=== PATIENT | male | born 1960 | race Caucasian/White ===

== ENCOUNTER 2016-10-26 20:05 | Emergency (ER) | payer BC ==
[~2016-10-26] VITALS: Ht 185.4 cm; Wt 142.9 kg
[~2016-10-26 20:05] MED LIST: ASPIRIN81 M1 PO; AUGMENTIN XR 101 TER PO; DIOVAN160 M1 PO; GLYBURIDE5 MG PO; LISINOPRIL20 MG PO; METFORMIN1000 MG PO; MULTIPLE VITAMI1 CAP PO; PANTOPRAZOLE SO20 MG PO; SIMVASTATIN40 MG PO; TRICOR; VICODIN 500 MG-1 TAB PO; VICTOZA6 MG/ML SC
[2016-10-26 20:50] LABS: BASO % 0.4 % (0.0-1.0); EOS % 0.4 % (1.0-4.0); HEMATOCRIT 48.1 % (42.0-52.0); HEMOGLOBIN 16.1 g/dl (14.0-18.0); LYMPH # 1.6 10*3/uL (1.3-4.4); LYMPH % 34.4 % (27.0-41.0); MEAN CELL VOLUME 83.7 fl (80.0-94.0); MEAN CORPUSCULAR HGB CONC 33.5 g/dl (33.0-37.0); MEAN PLATELET VOLUME 10.3 fl (9.6-12.3); MONO # 0.6 10*3/uL (0.1-1.0); MONO % 13.3 % (3.0-9.0); NEUT # 2.3 10*3/uL (2.3-7.9); NEUT % 51.3 % (47.0-73.0); PLATELET COUNT AUTOMATED 131 10*3/uL (130-400); RED BLOOD COUNT 5.75 10*6/uL (4.50-5.90); RED CELL DISTRI WIDTH 14.9 % (0-14.5); WHITE BLOOD COUNT 4.5 10*3/uL (4.8-10.8)
[2016-10-26 21:03] LABS: PROTHROMBIN TIME 10.7 SECONDS (9.0-12.4)
[2016-10-26 21:06] LABS: ALBUMIN 3.6 gm/dl (3.1-4.5); ALKALINE PHOSPHATASE 80 U/L (45-117); BILIRUBIN, TOTAL 0.5 mg/dl (0.2-1.0); BUN 11 mg/dl (7-24); CARBON DIOXIDE 24 mmol/L (21-32); CHLORIDE 103 mmol/L (98-107); EST GLOM FILT AFRICAN AMERICAN > 60 ml/min; GLUCOSE 157 mg/dL (65-99); MAGNESIUM 1.5 mg/dL (1.5-2.1); POTASSIUM 4.3 mmol/L (3.5-5.1); SGOT/AST 59 IU/L (3-35); SGPT/ALT 76 U/L (12-78); SODIUM 139 mmol/L (136-145); TOTAL PROTEIN 7.3 gm/dL (6.4-8.2)
[2016-10-26 21:08] LABS: TROPONIN I < 0.015 ng/ml (<0.045)
[2016-10-26 22:39] LABS: ABG BASE EXCESS -1.2 mmol/L (-2.0-2.0); ABG CO2 CONTENT 23.3 mmol/L (23-27); ABG HCO3 22.2 mmol/l (22-26); ABG TEMPERATURE 98.1 F (98.0-99.0); ARTERIAL BLOOD GAS PH 7.42 (7.35-7.45)
[2016-10-26] MEDS ORDERED: LEVOFLOXACIN500 MG PO (22:56)
[2016-10-26] MEDS ORDERED: PREDNISONE10 MG PO (22:56)
== END 2016-10-26 22:56 | disposition home or self-care (01) ==
LOC: ED 20:05
PROVIDERS: Emergency Medicine Emergency Medical Services
DX: J20.9 Acute bronchitis, unspecified (principal); I10 Essential (primary) hypertension; J44.9 Chronic obstructive pulmonary disease, unspecified; F17.200 Nicotine dependence, unspecified, uncomplicated; Z79.82 Long term (current) use of aspirin; Z79.899 Other long term (current) drug therapy

== ENCOUNTER 2025-06-08 05:57 | Inpatient (IN) | payer BC ==
[~2025-06-08] VITALS: Ht 182.8 cm; Wt 104.8 kg
[~2025-06-08 05:57] MED LIST changes: +LEVOFLOXACIN500 MG PO; +PREDNISONE10 MG PO
[2025-06-08] MEDS ORDERED: Albuterol Sulf/Ipratropium 3 ML VIAL NEB ONE (06:00)
[2025-06-08 06:03] VITALS: BP 146/70
[2025-06-08 06:32] LABS: MEAN CELL VOLUME 97.7 fl (80.0-94.0); MEAN CORPUSCULAR HGB 30.2 pg (27.0-31.0); MEAN PLATELET VOLUME 10.7 fl (9.6-12.3); NUCLEATED RED BLOOD CELL 0.0 % (0.0-0.0); NUCLEATED RED BLOOD CELL 0.0 10*3/uL (0.0-0.0); PLATELET COUNT AUTOMATED 55 10*3/uL (130-400); RED CELL DISTRI WIDTH 17.7 % (0-14.5)
[2025-06-08] MEDS ORDERED: PLAVIX75 M1 PO (06:37)
[2025-06-08] MEDS ORDERED: MAGNESIUM OXID400 MG PO (06:37)
[2025-06-08] MEDS ORDERED: TOPROL XL25 MG PO (06:37)
[2025-06-08] MEDS ORDERED: LYRICA75 M1 PO (06:38)
[2025-06-08] MEDS ORDERED: LEXAPRO10 MG PO (06:40)
[2025-06-08] MEDS ORDERED: SENNA8.8 MG/5 M PO (06:42)
[2025-06-08] MEDS ORDERED: NIFEDIPINE30 MG PO (06:43)
[2025-06-08] MEDS ORDERED: LIPITOR40 MG PO (06:43)
[2025-06-08] MEDS ORDERED: ATIVAN1 MG PO (06:44)
[2025-06-08] MEDS ORDERED: IRON325 M1 PO (06:44)
[2025-06-08] MEDS ORDERED: LANTUS SOL100 UNIT/1 SC (06:45)
[2025-06-08] MEDS ORDERED: HUMALOG KW200 UNIT/1 SQ (06:45)
[2025-06-08] MEDS ORDERED: Ondansetron4 MG PO (06:46)
[2025-06-08] MEDS ORDERED: OXYCODONE H5 MG/5 ML PO (06:47)
[2025-06-08] MEDS ORDERED: CHLORHEXIDINE FL1 ML MC (06:48)
[2025-06-08 06:53] LABS: BUN 19 mg/dl (9-23)
[2025-06-08 06:59] LABS: MANUAL DIFF REFLEX YES
[2025-06-08 07:09] LABS: PLATELET SUFFICIENCY LOW (NORMAL)
[2025-06-08 07:33] VITALS: BP 120/55
[2025-06-08 08:57] VITALS: BP 126/57
[2025-06-08] MEDS ORDERED: IOHEXOL 350 MG/ML 100 ML VIAL IV ONE (09:00)
[2025-06-08] MEDS ORDERED: SODIUM CHLORIDE 0.9% 100 ML BAG IV ONE (09:00)
[2025-06-08 09:05] LABS: VENOUS BLOOD GAS O2 SAT 79.0 % (60.0-85.0)
[2025-06-08] MEDS ORDERED: CONSTULOSE10 GM/151 PO (11:14)
[2025-06-08] MEDS ORDERED: ROPINIROLE HYD0.5 MG PO (11:15)
[2025-06-08] MEDS ORDERED: CEFEPIME HCL IN DEXTROSE 5 % 50 ML IV ONE (12:40)
[2025-06-08 13:27] VITALS: BP 125/62
[2025-06-08] MEDS ORDERED: BISACODYL 5 MG TAB PO PRN (13:55)
[2025-06-08] MEDS ORDERED: Acetaminophen/Hydrocodone 5 MG/325 MG TABLET PO PRN (13:55)
[2025-06-08] MEDS ORDERED: ACETAMINOPHEN 325 MG TAB PO PRN (13:55)
[2025-06-08] MEDS ORDERED: ACETAMINOPHEN 650 MG SUPP R PRN (13:55)
[2025-06-08] MEDS ORDERED: BISACODYL 10 MG SUPP R PRN (13:55)
[2025-06-08] MEDS ORDERED: PREGABALIN 75 MG CAP PO PRN (14:10)
[2025-06-08] MEDS ORDERED: DEXTROSE 50% 25 GM/50 ML VIAL IV PRN (14:10)
[2025-06-08] MEDS ORDERED: METOPROLOL SUCCINATE XR 25 MG TAB PO SCH (14:15)
[2025-06-08] MEDS ORDERED: Albuterol Sulf/Ipratropium 3 ML VIAL NEB SCH (14:30)
[2025-06-08] MEDS ORDERED: SODIUM CHLORIDE 0.9% 1,000 ML IV SCH (14:35)
[2025-06-08 15:20] VITALS: BP 131/74
[2025-06-08] MEDS ORDERED: INSULIN LISPRO 1 UNIT/0.01 ML SQ SCH (16:30)
[2025-06-08] MEDS ORDERED: MAGNESIUM OXIDE 400 MG TAB PO SCH (18:00)
[2025-06-08] MEDS ORDERED: SODIUM CHLORIDE 0.9% 1,000 ML IV ONE (19:00)
[2025-06-08 20:00] VITALS: BP 137/64
[2025-06-08] MEDS ORDERED: ATORVASTATIN CALCIUM 40 MG TABLET PO SCH (22:00)
[2025-06-08] MEDS ORDERED: NIFEdipine 30 MG TAB PO SCH (22:00)
[2025-06-08] MEDS ORDERED: LORazepam 1 MG TAB PO SCH (22:00)
[2025-06-08] MEDS ORDERED: Insulin Glargine, Recombinan 1 UNIT/0.01 ML SC SCH (22:00)
[2025-06-09] VITALS: BP 143/63
[2025-06-09 06:24] LABS: MEAN CELL VOLUME 98.7 fl (80.0-94.0); MEAN CORPUSCULAR HGB 29.8 pg (27.0-31.0); MEAN PLATELET VOLUME 11.4 fl (9.6-12.3); NUCLEATED RED BLOOD CELL 0.0 10*3/uL (0.0-0.0); NUCLEATED RED BLOOD CELL 0.4 % (0.0-0.0); PLATELET COUNT AUTOMATED 52 10*3/uL (130-400); RED CELL DISTRI WIDTH 17.7 % (0-14.5)
[2025-06-09 06:55] LABS: MANUAL DIFF REFLEX YES
[2025-06-09 07:02] LABS: PLATELET SUFFICIENCY LOW (NORMAL)
[2025-06-09 07:07] LABS: BUN 12 mg/dl (9-23); FREE T4 1.21 ng/dl (0.89-1.76); LDL CHOLESTEROL 66 mg/dL (9-159); SGPT/ALT 10 U/L (5-49)
[2025-06-09 07:18] LABS: VITAMIN D, 25-HYDROXY 31.7 ng/mL (30-100)
[2025-06-09 08:00] VITALS: BP 131/55
[2025-06-09] MEDS ORDERED: ESCITALOPRAM OXALATE 10 MG TAB PO SCH (10:00)
[2025-06-09] MEDS ORDERED: ASPIRIN ENTERIC COATED 81 MG TAB PO SCH (10:00)
[2025-06-09] MEDS ORDERED: Clopidogrel Hydrogen Sulfate 75 MG TAB PO SCH (10:00)
[2025-06-09] MEDS ORDERED: IOHEXOL 350 MG/ML 100 ML VIAL IV ONE (10:25)
[2025-06-09] MEDS ORDERED: SODIUM CHLORIDE 0.9% 100 ML BAG IV ONE (10:25)
[2025-06-09 12:00] VITALS: BP 140/67
[2025-06-09] MEDS ORDERED: MAGNESIUM SULFATE 50 ML IV SCH ×2 (12:35→22:00)
[2025-06-09 17:00] VITALS: BP 142/67
[2025-06-09 20:00] VITALS: BP 127/72
[2025-06-09] MEDS ORDERED: ACETYLCYSTEINE 800 MG/4 ML VIAL NEB SCH (22:00)
[2025-06-10] VITALS: BP 149/59
[2025-06-10 07:15] LABS: MEAN CELL VOLUME 95.8 fl (80.0-94.0); MEAN CORPUSCULAR HGB 29.7 pg (27.0-31.0); MEAN PLATELET VOLUME 11.9 fl (9.6-12.3); NUCLEATED RED BLOOD CELL 0.2 10*3/uL (0.0-0.0); NUCLEATED RED BLOOD CELL 1.4 % (0.0-0.0); PLATELET COUNT AUTOMATED 63 10*3/uL (130-400); RED CELL DISTRI WIDTH 18.2 % (0-14.5)
[2025-06-10 07:37] LABS: BUN 12 mg/dl (9-23)
[2025-06-10 07:41] LABS: MANUAL DIFF REFLEX YES
[2025-06-10 07:59] LABS: PLATELET SUFFICIENCY LOW (NORMAL)
[2025-06-10 08:00] VITALS: BP 122/59
[2025-06-10] MEDS ORDERED: MAGNESIUM SULFATE 50 ML IV ONE (09:10)
[2025-06-10] MEDS ORDERED: FERROUS SULFATE 325 MG TAB PO SCH (10:00)
[2025-06-10 12:00] VITALS: BP 137/61
[2025-06-10] MEDS ORDERED: DOXYCYCLINE MO100 MG PO (13:09)
[2025-06-10] MEDS ORDERED: Mucomyst NEB (13:09)
[2025-06-10] MEDS ORDERED: AMOX-CLAV 875-1 EACH PO (13:09)
[2025-06-12] MEDS ORDERED: ACETYLCYST100 MG/1 M NEB (20:58)
[2025-06-12] MEDS ORDERED: FAMOTIDINE20 M1 PO (20:59)
[2025-06-12] MEDS ORDERED: VENTOLIN 02.5 MG/3 M INH (21:00)
[2025-06-12] MEDS ORDERED: PANTOPRAZOLE SO40 MG PO (21:00)
== END 2025-06-10 14:01 | disposition home or self-care (01) | DRG 871 ==
LOC: ED 05:57 → EDHOLD 13:18 → 4E 13:18
PROVIDERS: Emergency Medicine; Internal Medicine; Student in an Organized Health Care Education/Training Program; ADMIT Student in an Organized Health Care Education/Training Program; ATTEND Student in an Organized Health Care Education/Training Program
DX: A41.9 Sepsis, unspecified organism (principal); D61.810 Antineoplastic chemotherapy induced pancytopenia; J15.69 Pneumonia due to other Gram-negative bacteria; J96.01 Acute respiratory failure with hypoxia; J44.1 Chronic obstructive pulmonary disease with (acute) exacerbation; J44.0 Chronic obstructive pulmonary disease with (acute) lower respiratory infection; I74.8 Embolism and thrombosis of other arteries; J91.8 Pleural effusion in other conditions classified elsewhere; Z68.45 Body mass index [BMI] 70 or greater, adult; T45.1X5A Adverse effect of antineoplastic and immunosuppressive drugs, initial encounter; R65.20 Severe sepsis without septic shock; J20.9 Acute bronchitis, unspecified; I25.10 Atherosclerotic heart disease of native coronary artery without angina pectoris; E78.2 Mixed hyperlipidemia; G47.33 Obstructive sleep apnea (adult) (pediatric); R73.9 Hyperglycemia, unspecified; D69.6 Thrombocytopenia, unspecified; D64.9 Anemia, unspecified; E66.9 Obesity, unspecified; G25.81 Restless legs syndrome; I45.10 Unspecified right bundle-branch block; I27.21 Secondary pulmonary arterial hypertension; Z85.118 Personal history of other malignant neoplasm of bronchus and lung; Z79.899 Other long term (current) drug therapy; Z79.01 Long term (current) use of anticoagulants; Z85.01 Personal history of malignant neoplasm of esophagus; Z79.2 Long term (current) use of antibiotics; Z79.4 Long term (current) use of insulin; Z79.82 Long term (current) use of aspirin; Z90.02 Acquired absence of larynx; Z90.49 Acquired absence of other specified parts of digestive tract; Z95.5 Presence of coronary angioplasty implant and graft; Z87.891 Personal history of nicotine dependence; Z80.3 Family history of malignant neoplasm of breast; Y92.89 Other specified places as the place of occurrence of the external cause